=== PATIENT | female | born 1995 | race Two or more races ===

== ENCOUNTER 2021-05-07 15:22 | Emergency (ER) | payer OTHER ==
[~2021-05-07] VITALS: Ht 170.2 cm; Wt 77.1 kg
[2021-05-07 16:10] VITALS: BP 120/74
[2021-05-07 18:42] LABS: Hepatitis B Surface Antibody Positive (Negative)
== END 2021-05-07 17:19 | disposition home or self-care (01) ==
LOC: ER 15:22
DX: S61.236A Puncture wound without foreign body of right little finger without damage to nail, initial encounter (principal); W46.1XXA Contact with contaminated hypodermic needle, initial encounter; Y93.89 Activity, other specified; Y92.89 Other specified places as the place of occurrence of the external cause; Y99.8 Other external cause status
CPT/HCPCS: 36415; 71046; 86703; 86706; 86803; 87340